=== PATIENT | male | born 1995 | race Caucasian/White ===

== ENCOUNTER 2025-01-08 11:25 | Inpatient (IN) | payer OTHER ==
[~2025-01-08] VITALS: Ht 172.7 cm; Wt 78.0 kg
[2025-01-08] MEDS ORDERED: [UNRECOGNIZED DRUG - CODE] PO (11:56)
[2025-01-08] MEDS ORDERED: METO50 PO (11:56)
[2025-01-08] MEDS ORDERED: FERR325T27 PO (11:56)
[2025-01-08 12:41] LABS: PLATELET COUNT (AUTO) 139 K/uL (150-450); RED BLOOD CELL COUNT(AUTO) 2.96 MIL/uL (4.50-5.90); RED CELL DISTRIBUTION WIDTH 15.5 % (11.5-14.5); WHITE BLOOD COUNT (AUTO) 5.3 K/uL (4.5-11.0)
[2025-01-08 12:47] LABS: CALCIUM, TOTAL 8.6 mg/dL (8.8-10.5); CREATININE 18.09 mg/dL (0.60-1.30); GLOMERULAR FILTR. RATE CALC 3.0 mL/min (>60); GLUCOSE,RANDOM 103.0 mg/dL (70-110); SODIUM SERUM 137.0 mmol/L (136-145); UREA NITROGEN, BLOOD 61.0 mg/dL (7-18)
[2025-01-08 12:53] LABS: ASPARTATE AMINOTRANSFERASE 24.0 U/L (15-37); TOTAL PROTEIN, SERUM 8.0 g/dL (6.4-8.2)
[2025-01-08] MEDS ORDERED: CALC1TAB PO (15:06)
[2025-01-08 15:23] VITALS: BP 141/91; PULSE 96; RESP 18; TEMP 97.5; O2SAT 99
[2025-01-08] MEDS ORDERED: ACETAMINOPHEN 325 MG TABLET PO PRN (15:30)
[2025-01-08] MEDS ORDERED: MAGNESIUM HYDROXIDE SUSPENSION 30 ML UDCUP PO PRN (15:30)
[2025-01-08] MEDS ORDERED: MORPHINE SULFATE 4 MG/ML SYRINGE IVP PRN (15:30)
[2025-01-08] MEDS ORDERED: ZOLPIDEM TARTRATE 5 MG TABLET PO PRN (15:30)
[2025-01-08] MEDS ORDERED: ONDANSETRON HCL 4 MG/2 ML VIAL IVP PRN (15:30)
[2025-01-08] MEDS ORDERED: BISACODYL 10 MG RECTAL RECTAL SUPPOSITORY PR PRN (15:30)
[2025-01-08] MEDS ORDERED: HYDROCODONE/ACETAMINOPHEN 5-325 MG TABLET PO PRN (15:30)
[2025-01-08] MEDS: HEPARIN SODIUM,PORCINE 5,000 UNITS/ML VIAL SQ SCH (17:48)
[2025-01-08 19:39] VITALS: BP 122/81; PULSE 97; RESP 18; TEMP 98.1; O2SAT 99
[2025-01-08] MEDS: METOPROLOL TARTRATE 50 MG TABLET PO SCH (20:00)
[2025-01-08] MEDS: ETHYL ALCOHOL 62% ANTISEPTIC NASAL SANITIZER 0.6 ML AMPUL NASAL SCH (20:01)
[2025-01-08] MEDS: DOCUSATE SODIUM 100 MG CAPSULE PO SCH (20:01)
[2025-01-08 23:50] VITALS: BP 131/18; PULSE 84; RESP 18; TEMP 97.9; O2SAT 100
[2025-01-09] VITALS (13 sets, daily range): BP systolic 112–144; BP diastolic 69–96; PULSE 82–104; RESP 18; TEMP 97.7–98; O2SAT 98–100
[2025-01-09 08:20] LABS: PLATELET COUNT (AUTO) 137 K/uL (150-450); RED BLOOD CELL COUNT(AUTO) 2.70 MIL/uL (4.50-5.90); RED CELL DISTRIBUTION WIDTH 15.2 % (11.5-14.5); WHITE BLOOD COUNT (AUTO) 4.5 K/uL (4.5-11.0)
[2025-01-09 08:34] LABS: CALCIUM, TOTAL 8.1 mg/dL (8.8-10.5); CREATININE 19.65 mg/dL (0.60-1.30); GLOMERULAR FILTR. RATE CALC 3.0 mL/min (>60); GLUCOSE,RANDOM 79.0 mg/dL (70-110); SODIUM SERUM 138.0 mmol/L (136-145); UREA NITROGEN, BLOOD 67.0 mg/dL (7-18)
[2025-01-09] MEDS: VALSARTAN 160 MG TABLET PO SCH (09:00)
[2025-01-09] MEDS: PANTOPRAZOLE SODIUM 40 MG DR TABLET PO SCH (09:10)
[2025-01-09] MEDS: CALCIUM OYSTER SHELL 250 MG-VIT D3 125 UNITS[3.125MCG] TABLET PO SCH (09:11)
[2025-01-09] MEDS ORDERED: SODIUM CHLORIDE 0.9% 2,000 ML ONE (09:13)
[2025-01-09] MEDS: SODIUM BICARBONATE 650 MG TABLET PO SCH (14:36)
[2025-01-09] MEDS: FOLIC ACID/VIT B COMPLEX AND C TABLET PO SCH (14:36)
== END 2025-01-09 15:41 | DRG 682 ==
LOC: EMS 11:29 → EDH 13:49 → EDBD 13:49 → 6S 14:45 → 5S 15:00 → 6S 01-09 05:15
PROVIDERS: ADMIT Internal Medicine; ATTEND Internal Medicine
PROC: 5A1D70Z Performance of Urinary Filtration, Intermittent, Less than 6 Hours Per Day (ICD-10-PCS; principal; 2025-01-09)
DX: I12.0 Hypertensive chronic kidney disease with stage 5 chronic kidney disease or end stage renal disease (principal); N18.6 End stage renal disease; E87.20 Acidosis, unspecified; Z99.2 Dependence on renal dialysis; D63.8 Anemia in other chronic diseases classified elsewhere; M79.89 Other specified soft tissue disorders; Z79.899 Other long term (current) drug therapy
CPT/HCPCS: 71045; 80048; 80076; 85025; 87081; 87340; 90935; 93005; 99285; J1644; J7030; 36415-L1; 36415-TC